=== PATIENT | female | born 1995 | race Caucasian/White ===

== ENCOUNTER → 2023-03-07 | Outpatient (CLI) | payer BC, OTHER | LOC: M WHC 09:12 | PROVIDERS: ATTEND Advanced Practice Midwife | DX: O32.1XX0 Maternal care for breech presentation, not applicable or unspecified (principal); Z3A.19 19 weeks gestation of pregnancy ==

== ENCOUNTER → 2023-04-27 | Outpatient (CLI) | payer BC, OTHER | LOC: M WHC 14:45 | PROVIDERS: ATTEND Specialist | DX: Z34.82 Encounter for supervision of other normal pregnancy, second trimester (principal) ==

== ENCOUNTER 2023-05-25 09:29 | Outpatient (CLI) | payer BC, OTHER ==
[~2023-05-25] VITALS: Ht 160 cm; Wt 69.3 kg
[2023-05-25] MEDS ORDERED: ACET325C5 PO ×2 (09:43)
[2023-05-25] MEDS ORDERED: PRENTAB9 PO (09:43)
[2023-05-25] MEDS ORDERED: HOME MED LIST COMPLETE! XX SCH (09:45)
[2023-05-25 09:49] VITALS: BP 120/70
[2023-05-25] MEDS: FIORICET TAB PO ONE (10:03)
[2023-05-25 10:14] VITALS: BP 126/80
[2023-05-25 10:26] LABS: HEMATOCRIT 34.7 % (36.0-47.0); HEMOGLOBIN 11.9 g/dl (12.0-15.5); MEAN CORPUSCULAR HEMOGLOBIN 29.8 pg (27.0-33.0); MEAN CORPUSCULAR HGB CONC 34.3 g/dl (32.0-36.5); MEAN CORPUSCULAR VOLUME 86.8 fl (80.0-96.0); PLATELET COUNT, AUTOMATED 215 10^3/uL (150-450); WHITE BLOOD COUNT 13.7 10^3/uL (4.0-10.0)
[2023-05-25 10:33] VITALS: BP 117/62
[2023-05-25 10:47] LABS: TOTAL PROTEIN,RANDOM URINE 14.2 MG/DL (0.0-14.0)
[2023-05-25 10:48] LABS: URIC ACID 4.8 MG/DL (3.1-7.8)
[2023-05-25 10:49] LABS: LIPASE 23 U/L (12-53)
[2023-05-25 10:50] LABS: AMYLASE 99 U/L (30-118); LDH LACTATE DEHYDROGENASE 153 U/L (120-246)
[2023-05-25 10:51] LABS: ALBUMIN 2.7 G/DL (3.2-5.2); ALKALINE PHOSPHATASE 53 U/L (46-116); ALT/SGPT 11 U/L (7.0-40); AST/SGOT 11 U/L (<34); BILIRUBIN,TOTAL 0.3 MG/DL (0.3-1.2); BLOOD UREA NITROGEN 10 MG/DL (9-23); CALCIUM LEVEL 9.6 MG/DL (8.5-10.1); CARBON DIOXIDE LEVEL 24 MMOL/L (20-31); CHLORIDE LEVEL 107 MMOL/L (98-107); GLOMERULAR FILTRATION RATE > 60.0 (>60); GLUCOSE, FASTING 70 MG/DL (60-100); POTASSIUM SERUM 4.3 MMOL/L (3.5-5.1); SODIUM LEVEL 139 MMOL/L (136-145); TOTAL PROTEIN 5.8 G/DL (5.7-8.2)
[2023-05-25 10:51] LABS: CREATININE,RANDOM URINE 86.8 MG/DL
[2023-05-25] MEDS ORDERED: ESGI1TAB PO (12:36)
== END 2023-05-25 11:48 | disposition home or self-care (01) ==
LOC: M LDO 09:29
PROVIDERS: ATTEND Obstetrics & Gynecology
DX: O26.893 Other specified pregnancy related conditions, third trimester (principal); R51.9 Headache, unspecified; O09.813 Supervision of pregnancy resulting from assisted reproductive technology, third trimester; O34.219 Maternal care for unspecified type scar from previous cesarean delivery; Z3A.30 30 weeks gestation of pregnancy
CPT/HCPCS: 36415; 59025; 80053; 82150; 82570; 83615; 83690; 84156; 84550; 85027; G0463

== ENCOUNTER → 2023-07-03 | Outpatient (REF) | payer OTHER ==
[~2023-07-03] MED LIST: ACET325C5 PO; ESGI1TAB PO; PRENTAB9 PO
== END ==
LOC: M SFHCWAGY 12:21
PROVIDERS: ATTEND Obstetrics & Gynecology
DX: O34.211 Maternal care for low transverse scar from previous cesarean delivery (principal); Z3A.00 Weeks of gestation of pregnancy not specified

== ENCOUNTER 2023-07-08 20:02 | Outpatient (CLI) | payer OTHER ==
[~2023-07-08] VITALS: Ht 160 cm; Wt 73.7 kg
[2023-07-08 20:14] VITALS: BP 119/77
[2023-07-08] MEDS ORDERED: HOME MED LIST COMPLETE! XX SCH (21:35)
== END 2023-07-08 22:25 | disposition home or self-care (01) ==
LOC: M LDO 20:02
PROVIDERS: ATTEND Obstetrics & Gynecology
DX: O36.8130 Decreased fetal movements, third trimester, not applicable or unspecified (principal); Z3A.36 36 weeks gestation of pregnancy; O09.813 Supervision of pregnancy resulting from assisted reproductive technology, third trimester; Z91.018 Allergy to other foods
CPT/HCPCS: 59025; G0463

== ENCOUNTER → 2024-02-20 | Outpatient (REF) | payer BC | LOC: M PLALAB 16:24 | PROVIDERS: ATTEND Obstetrics & Gynecology | DX: Z12.4 Encounter for screening for malignant neoplasm of cervix (principal); Z53.9 Procedure and treatment not carried out, unspecified reason ==